=== PATIENT | female | born 1960 | race Caucasian/White ===

== ENCOUNTER 2019-03-31 21:10 | Emergency (ER) | payer SELFPAY ==
[~2019-03-31] VITALS: Ht 165.1 cm; Wt 69.0 kg
--- NOTE | 2019-03-31 22:25 | NUR ---
pt returned from ct
--- NOTE | 2019-03-31 22:48 | NUR ---
pt sleeping in gurney, friend at bedside. pt to be discharged, xrays negative
--- NOTE | 2019-03-31 23:08 | NUR ---
SB[facility] report received from [facility]. Pt sleeping on gurconstance, friend at bedside.
[2019-03-31 23:30] VITALS: BP 123/76
--- NOTE | 2019-03-31 23:30 | NUR ---
Patient/Caregiver given discharge instructions and they have confirmed that they understand the instructions. Patient ambulatory with steady gait.
== END 2019-03-31 23:33 | disposition home or self-care (01) ==
LOC: ED 23:27
DX: S06.321A Contusion and laceration of left cerebrum with loss of consciousness of 30 minutes or less, initial encounter (principal); S16.1XXA Strain of muscle, fascia and tendon at neck level, initial encounter; S50.02XA Contusion of left elbow, initial encounter; S80.02XA Contusion of left knee, initial encounter; I10 Essential (primary) hypertension; W01.0XXA Fall on same level from slipping, tripping and stumbling without subsequent striking against object, initial encounter; Y93.89 Activity, other specified; Y92.59 Other trade areas as the place of occurrence of the external cause; Y99.8 Other external cause status
CPT/HCPCS: 70450; 72125; 99284